=== PATIENT | male | born 1985 | race Caucasian/White ===

== ENCOUNTER 2020-06-30 17:43 | Inpatient (IN) | payer OTHER ==
[~2020-06-30] VITALS: Ht 170.2 cm; Wt 90.2 kg
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
[2020-06-30] MEDS ORDERED: SODIUM CHLORIDE 0.9% 1,000ML IVBOLUS ONE ×3 (18:00→20:30)
[2020-06-30] MEDS ORDERED: ACETAMINOPHEN 500 MG TABLET PO ONE (18:00)
[2020-06-30] MEDS ORDERED: SODIUM CHLORIDE FLUSH 10ML SYR IVF ONE (18:00)
[2020-06-30] MEDS ORDERED: ACETAMINOPHEN 500 MG TABLET ONE (18:10)
--- NOTE | 2020-06-30 18:27 | NUR ---
BLOOD CULTURES DRAWN. IV STARTED.
[2020-06-30 18:38] LABS: BASOPHILS % (AUTO) 0 % (0-1); EOSINOPHILS % (AUTO) 1 % (1-7); LYMPHOCYTES % (AUTO) 8 % (22-44); MD NO; MEAN CORPUSCULAR HEMOGLOBIN 30.1 pg (27.5-34.5); MEAN CORPUSCULAR HGB CONC 34.3 g/dL (33.2-36.2); MEAN PLATELET VOLUME 7.3 fL (7.4-10.4); MONOCYTES % (AUTO) 2 % (2-9); NEUTROPHILS % (AUTO) 90 % (42-75); PLATELET COUNT 244 x10^3/uL (130-400); RED BLOOD COUNT 4.92 x10^6/uL (4.38-5.82); RED CELL DISTRIBUTION WIDTH 13.1 % (9.4-14.8)
[2020-06-30] MEDS ORDERED: NEOSPORIN OINT. PKT 1 PACKET ONE (18:44)
--- NOTE | 2020-06-30 18:46 | NUR ---
BEDSIDE REPORT RECEIVED FROM ALDO RIGGINS
[2020-06-30 18:51] LABS: ALANINE AMINOTRANSFERASE 33 U/L (12-78); ALBUMIN 3.5 g/dL (3.4-5.0); ANION GAP 7 mmol/L (5-15); CALCIUM 8.9 mg/dL (8.5-10.1); CHLORIDE 109 mmol/L (98-107); CREATININE 0.94 mg/dL (0.7-1.3)
[2020-06-30 18:53] LABS: ALKALINE PHOSPHATASE 118 U/L (45-117); BILIRUBIN,TOTAL 2.8 mg/dL (0.2-1.0); TOTAL PROTEIN 6.8 g/dL (6.4-8.2)
--- NOTE | 2020-06-30 19:08 | NUR ---
UPON ENTRY INTO ROOM PT O2 NOTED TO BE 89% ON ROOM AIR, PT PLACED ON 2L SUPPLEMENTAL O2 VIA NASAL CANNULA. PT O2 NOW 96%. PT TOLERATING WELL. ERP AT BEDSIDE.
--- NOTE | 2020-06-30 19:15 | NUR ---
PER ERP, , WILL ADMIN NARCAN PER EMAR AND REEVALUATE PT STATUS, MENTATION AND VITALS. FOLLOWING ADMIN OF 0.4MG PT HAS SLIGHT INCREASE IN ACTIVITY AND RESPONSE TO STAFF. VITALS IMPROVING. PT SLEEPING CALMLY ON GURNEY. ERP NOTIFIED.
[2020-06-30] MEDS ORDERED: NALOXONE 0.4 MG/ML, 1ML ONE ×2 (19:18→19:35)
[2020-06-30] MEDS ORDERED: NALOXONE 0.4 MG/ML, 1ML IVPush ONE ×2 (19:30→20:00)
--- NOTE | 2020-06-30 19:40 | NUR ---
PT GIVEN SECOND DOSE OF NARCAN IV, SEE EMAR. VITALS REMAIN STABLE AND MENTATION IMPROVED SLIGHTLY, ABLE TO OPEN EYES FOR BRIEF PERIODS OF TIME. NOT ABLE TO FOLLOW COMMANDS AT THIS TIME. ERP NOTIFIED.
[2020-06-30] MEDS ORDERED: DOXYCYCLINE 100 MG in DEXTROSE 5% 250 ML IV SCH (20:00)
[2020-06-30] MEDS ORDERED: CEFTRIAXONE PMX 1GM/50ML 50 ML IV ONE (20:00)
[2020-06-30] MEDS ORDERED: NALOXONE 1 MG/ML, 2ML ONE ×2 (20:08→21:24)
[2020-06-30] MEDS ORDERED: NALOXONE 4 MG in SODIUM CHLORIDE 0.9% 246 ML IV PRN (20:30)
[2020-06-30] MEDS ORDERED: NALOXONE 1 MG/ML, 2ML IVPush ONE ×2 (20:30→21:30)
[2020-06-30] MEDS ORDERED: CEFTRIAXONE PMX 1GM/50ML 50 ML ONE (20:36)
[2020-06-30] MEDS ORDERED: METRONIDAZOLE PMX 500MG/100ML 100 ML IV SCH (21:00)
[2020-06-30] MEDS ORDERED: DOCUSATE 100 MG CAPSULE PO PRN (21:00)
[2020-06-30] MEDS ORDERED: GUAIFENESIN/DM 200-20MG, 10ML UDC PO PRN (21:00)
[2020-06-30] MEDS ORDERED: ONDANSETRON 2MG/ML, 2ML IVPush PRN (21:00)
--- NOTE | 2020-06-30 21:00 | NUR ---
PT REMAINS CALM SITTING UPRIGHT ON BED, EYES CLOSED. PT ABLE TO FOLLOW SIMPLE COMMANDS. A&OX2-3.
--- NOTE | 2020-06-30 21:14 | NUR ---
NARCAN INFUSION STARTED PER PROTOCOL, 2MG/HR. WILL BOLUS IVP PER IF NEEDED. PT REMAINS CALM, VSS. PT ABLE TO OPEN EYES AND SPEAK 2-3 WORDS AT A TIME, FOLLOWING COMMANDS APPROPRIATELY. WILL CONTINUE TO MONITOR.
--- NOTE | 2020-06-30 21:20 | NUR ---
RESPIRATORY THERAPY AT BEDSIDE
[2020-06-30] MEDS ORDERED: HEPARIN 5,000 UNITS/ML, 1ML ONE (21:24)
[2020-06-30] MEDS ORDERED: METRONIDAZOLE PMX 500MG/100ML 100 ML ONE (21:24)
[2020-06-30] MEDS: HEPARIN 5,000 UNITS/ML, 1ML SQ SCH (21:28)
--- NOTE | 2020-06-30 21:55 | NUR ---
PT MOVED FROM ED ROOM 26 TO ED 18
[2020-06-30] MEDS: AZITHROMYCIN 500 MG in SODIUM CHLORIDE 0.9% 250 ML IV SCH (22:25)
--- NOTE | 2020-06-30 23:08 | NUR ---
PT SITTING UPRIGHT ON GURMAYRA, BESSIE, VSS. PT CONVERSING WITH THIS RN, PT STATES "I THINK I GOT SOME CRAZY DRUGS YESTRDAY, IT WAS SCARING ME HOW MUCH MY MENTAL STATE WAS DECLINING, I JUST KNEW SOMETHING WAS WRONG". PT TALKING IN FULL SENTENCES WITH THIS RN, A&OX4 AT THIS TIME. NARCAN DRIP INFUSING AT 3MG/HR.
[2020-06-30] MEDS: NALOXONE 4 MG in SODIUM CHLORIDE 0.9% 246 ML IV PRN (23:11)
--- NOTE | 2020-06-30 23:37 | NUR ---
HOSPITAL BED REQUESTED.
--- NOTE | 2020-07-01 00:03 | NUR ---
PT SITTING UPRIGHT ON SHA, BESSIE, VSS. PT CONTINUES CONVERSING WITH THIS RN. PT TALKING IN FULL SENTENCES WITH THIS RN, A&OX4 AT THIS TIME. NARCAN DRIP INFUSING AT 3MG/HR.
[2020-07-01] MEDS: NALOXONE 4 MG in SODIUM CHLORIDE 0.9% 246 ML IV PRN ×5 (00:45→06:26)
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
--- NOTE | 2020-07-01 01:50 | NUR ---
PT URINATED APPROX 1000 ML URINE
[2020-07-01 02:23] LABS: MICROSCOPIC INDICATED
--- NOTE | 2020-07-01 02:24 | NUR ---
NEW BAG OF NARCAN IVF STARTED PER EMAR. DOSE TITRATED TO 2.75MG/HR. PT TOLERATING WELL. VSS, NAD.
[2020-07-01 02:28] LABS: AMPHETAMINE SCREEN, URINE Positive (Negative); BARBITURATE SCREEN, URINE Negative (Negative); BENZODIAZEPINE SCREEN, URINE Negative (Negative); CANNABINOID SCREEN, URINE Positive (Negative); COCAINE SCREEN, URINE Negative (Negative); METHADONE SCREEN, URINE Negative (Negative); OPIATE SCREEN, URINE Positive (Negative)
--- NOTE | 2020-07-01 03:02 | NUR ---
PT SITTING ON HOSPITAL BED, RESTING WITH EYES CLOSED. NAD, VSS. PT NARCAN TITRATED 2.5MG/HR. PT TOLERATING WELL. RESPIRATIONS UNLABORED AND REGULAR. NO NEEDS AT THIS TIME. CALL LIGHT WITHIN REACH.
--- NOTE | 2020-07-01 04:03 | NUR ---
PT SITTING ON HOSPITAL BED, RESTING WITH EYES CLOSED AND TV ON. NAD, VSS. PT NARCAN TITRATED DOWN TO 2 MG/HR. PT TOLERATING WELL. RESPIRATIONS UNLABORED AND REGULAR. NO NEEDS AT THIS TIME. CALL LIGHT WITHIN REACH.
--- NOTE | 2020-07-01 04:57 | NUR ---
PT SITTING ON HOSPITAL BED, RESTING WITH EYES CLOSED AND TV ON. NAD, VSS. PT NARCAN TITRATED DOWN TO 1.75 MG/HR. PT TOLERATING WELL. RESPIRATIONS UNLABORED AND REGULAR. NO NEEDS AT THIS TIME. CALL LIGHT WITHIN REACH.
[2020-07-01] MEDS ORDERED: HEPARIN 5,000 UNITS/ML, 1ML ONE (05:24)
[2020-07-01] MEDS: HEPARIN 5,000 UNITS/ML, 1ML SQ SCH ×3 (05:25→20:30)
[2020-07-01 05:29] LABS: BASOPHILS % (AUTO) 1 % (0-1); EOSINOPHILS % (AUTO) 1 % (1-7); LYMPHOCYTES % (AUTO) 12 % (22-44); MEAN CORPUSCULAR HEMOGLOBIN 30.4 pg (27.5-34.5); MEAN CORPUSCULAR HGB CONC 34.4 g/dL (33.2-36.2); MEAN PLATELET VOLUME 7.6 fL (7.4-10.4); MONOCYTES % (AUTO) 9 % (2-9); NEUTROPHILS % (AUTO) 78 % (42-75); PLATELET COUNT 195 x10^3/uL (130-400); RED CELL DISTRIBUTION WIDTH 13.6 % (9.4-14.8)
[2020-07-01 05:35] LABS: MD NO
[2020-07-01 05:41] LABS: ALBUMIN 2.6 g/dL (3.4-5.0); ANION GAP 3 mmol/L (5-15); CALCIUM 7.7 mg/dL (8.5-10.1); CHLORIDE 111 mmol/L (98-107)
--- NOTE | 2020-07-01 05:41 | NUR ---
Pt to be admitted to ICU, room 8. Report called to JUAN.
[2020-07-01 05:45] LABS: ALANINE AMINOTRANSFERASE 107 U/L (12-78); ALKALINE PHOSPHATASE 156 U/L (45-117); CREATININE 0.85 mg/dL (0.7-1.3); TOTAL PROTEIN 5.4 g/dL (6.4-8.2)
[2020-07-01 06:07] VITALS: BP 99/55
[2020-07-01 06:12] VITALS: BP 99/54
[2020-07-01 07:19] LABS: C-REACTIVE PROTEIN, QUANT 5.1 mg/dL (0.02-0.49)
[2020-07-01] MEDS: NICOTINE 21 MG/24 HR PATCH.TD24 TD SCH (12:30)
[2020-07-01 14:00] VITALS: BP 104/45
[2020-07-01] MEDS: CEFTRIAXONE PMX 1GM/50ML 50 ML IV SCH (20:29)
[2020-07-01 20:30] VITALS: BP 118/68
[2020-07-01] MEDS: AZITHROMYCIN 500 MG in SODIUM CHLORIDE 0.9% 250 ML IV SCH (22:47)
[2020-07-02 02:10] VITALS: BP 112/70
[2020-07-02] MEDS: HEPARIN 5,000 UNITS/ML, 1ML SQ SCH ×3 (04:39→23:35)
[2020-07-02] MEDS ORDERED: HYDROcodone/APAP 5/325 TABLET PO ONE (05:00)
[2020-07-02 05:23] LABS: CALCIUM 8.3 mg/dL (8.5-10.1); CHLORIDE 112 mmol/L (98-107)
[2020-07-02 05:29] LABS: ALANINE AMINOTRANSFERASE 84 U/L (12-78); ALBUMIN 2.7 g/dL (3.4-5.0); ALKALINE PHOSPHATASE 130 U/L (45-117); ANION GAP 4 mmol/L (5-15); CREATININE 0.74 mg/dL (0.7-1.3); TOTAL PROTEIN 5.7 g/dL (6.4-8.2)
[2020-07-02 07:10] VITALS: BP 133/81
[2020-07-02] MEDS: NICOTINE 21 MG/24 HR PATCH.TD24 TD SCH (08:42)
[2020-07-02] MEDS ORDERED: HALOPERIDOL 1 MG TABLET ONE (16:03)
[2020-07-02] MEDS ORDERED: SERTRALINE 50MG TABLET ONE (16:03)
[2020-07-02] MEDS: SERTRALINE 50MG TABLET PO SCH (16:07)
[2020-07-02] MEDS: HALOPERIDOL 2 MG TABLET PO SCH ×2 (16:07→23:34)
[2020-07-02 19:12] VITALS: BP 126/72
[2020-07-02] MEDS: CEFTRIAXONE PMX 1GM/50ML 50 ML IV SCH (19:50)
[2020-07-02] MEDS: AZITHROMYCIN 500 MG in SODIUM CHLORIDE 0.9% 250 ML IV SCH (23:34)
[2020-07-03 05:53] LABS: ALANINE AMINOTRANSFERASE 67 U/L (12-78); ALBUMIN 2.8 g/dL (3.4-5.0); ANION GAP 2 mmol/L (5-15); CALCIUM 8.8 mg/dL (8.5-10.1); CHLORIDE 113 mmol/L (98-107); CREATININE 0.68 mg/dL (0.7-1.3)
[2020-07-03 05:55] LABS: ALKALINE PHOSPHATASE 123 U/L (45-117); BILIRUBIN,TOTAL 0.6 mg/dL (0.2-1.0); TOTAL PROTEIN 6.2 g/dL (6.4-8.2)
[2020-07-03] MEDS: HEPARIN 5,000 UNITS/ML, 1ML SQ SCH ×3 (08:00→16:00)
[2020-07-03] MEDS: HALOPERIDOL 2 MG TABLET PO SCH (08:38)
[2020-07-03] MEDS: SERTRALINE 50MG TABLET PO SCH (08:38)
[2020-07-03] MEDS: NICOTINE 21 MG/24 HR PATCH.TD24 TD SCH (08:38)
[2020-07-03 08:44] VITALS: BP 127/77
[2020-07-03] MEDS ORDERED: CEFDINIR 300 MG CAPSULE PO SCH (09:00)
[2020-07-03] MEDS ORDERED: AZITHROMYCIN 250 MG TABLET PO SCH (09:00)
[2020-07-03] MEDS ORDERED: METHOCARBAMOL 500 MG TABLET PO PRN (13:00)
[2020-07-03] MEDS ORDERED: CEFD300C37 PO (14:48)
[2020-07-03] MEDS ORDERED: AZIT250T89 PO (14:48)
[2020-07-03] MEDS ORDERED: SERT50TA28 PO (14:48)
[2020-07-03] MEDS ORDERED: HALO2TAB PO (14:48)
[2020-07-03 15:16] VITALS: BP 124/72
== END 2020-07-03 17:20 | DRG 917 ==
LOC: ED 20:30 → EDIP 20:37 → ED 21:10 → ICU 07-01 05:56 → 3N 07-01 19:45
PROVIDERS: ADMIT Family Medicine; ATTEND Family Medicine
DX: T40.1X2A Poisoning by heroin, intentional self-harm, initial encounter (principal); J18.9 Pneumonia, unspecified organism; J96.90 Respiratory failure, unspecified, unspecified whether with hypoxia or hypercapnia; F15.20 Other stimulant dependence, uncomplicated; T40.2X2A Poisoning by other opioids, intentional self-harm, initial encounter; B19.20 Unspecified viral hepatitis C without hepatic coma; Z20.822 Contact with and (suspected) exposure to COVID-19; I95.9 Hypotension, unspecified; F32.9 Major depressive disorder, single episode, unspecified; F41.9 Anxiety disorder, unspecified; Z59.0 Homelessness; Z72.0 Tobacco use; Z91.5 Personal history of self-harm; Y92.89 Other specified places as the place of occurrence of the external cause
CPT/HCPCS: 36415; 71045; 80053; 80074; 80307; 81001; 83605; 83615; 84145; 85025; 85379; 86140; 87040; 87081; 87086; 87521; 93005; 96361; 96374; 96375; 96376; 99291; G0378; J0456; J0696; J1644; J2310; J7060; J7030; J7050; U0003

== ENCOUNTER 2020-07-08 18:03 | Emergency (ER) | payer OTHER ==
[~2020-07-08] VITALS: Ht 172.7 cm; Wt 90.0 kg
[~2020-07-08 18:03] MED LIST: AZIT250T89 PO; CEFD300C37 PO; HALO2TAB PO; SERT50TA28 PO
--- NOTE | 2020-07-08 18:21 | NUR ---
kole HAYES from [facility]. "a few hours ago" pt started feeling the muscles in the L side of his face tighten up. "it felt like my face was just trying to go down to my shoulder." recently stopped herion and meth and was started on sertraline, trazodone, and haloperidol. en route ems gave pt versed and benadryl. pt state its made the muscle tightness feel better.
--- NOTE | 2020-07-08 19:20 | NUR ---
Bedside report rec'd from Sandee. Patient awakes after several attempts saying his name and shaking patient, then falls right back to sleep. Patient resp easy and unlabored. VSS. O2- 97 on RA. Will con't to monitor
[2020-07-08 19:40] VITALS: BP 126/66
--- NOTE | 2020-07-08 19:41 | NUR ---
Patient awake and stated he was ready to go home. Patient ride was called and is on his way.
== END 2020-07-08 19:50 | disposition home or self-care (01) ==
LOC: ED 18:48
DX: G24.09 Other drug induced dystonia (principal); T43.4X5A Adverse effect of butyrophenone and thiothixene neuroleptics, initial encounter; F17.200 Nicotine dependence, unspecified, uncomplicated; Z90.89 Acquired absence of other organs; Z90.49 Acquired absence of other specified parts of digestive tract; Y92.89 Other specified places as the place of occurrence of the external cause
CPT/HCPCS: 99283

== ENCOUNTER 2021-02-22 22:55 | Emergency (ER) | payer OTHER ==
[~2021-02-22] VITALS: Ht 172.7 cm; Wt 85.4 kg
--- NOTE | 2021-02-22 23:08 | NUR ---
NIL X 1
--- NOTE | 2021-02-22 23:42 | NUR ---
PT FOUND SLEEPING IN LOBBY, PT REFUSED TO PUT A MASK ON AND GOT CONFRONTATIONAL WITH THIS RN AND OTHER PATIENTS IN [facility], SECURITY CALLED, PT ARGUED WITH SECURITY BUT PUT ON HIS MASK
[2021-02-23] MEDS ORDERED: LIDOCAINE-MPF 1%, 5ML ONE (02:59)
[2021-02-23] MEDS ORDERED: LIDOCAINE-MPF 1%, 5ML INFIL ONE (03:00)
--- NOTE | 2021-02-23 04:21 | NUR ---
LIP LACERATION IRRIGATED UNDER PRESSURE WITH 750ML NS. PT TOLERATED WELL. NO ADDITIONAL NEEDS AT THIS TIME.
[2021-02-23] MEDS ORDERED: BACITRACIN ZINC OINT 500U/GM, 0.9 GM ONE (04:36)
[2021-02-23 04:43] VITALS: BP 112/67
--- NOTE | 2021-02-23 04:43 | NUR ---
Patient given discharge instructions and they have confirmed that they understand the instructions. Patient ambulatory with steady gait. NAD, all questions answered appropriately, denies additional needs at this time. No personal belongings left in room after discharge.
== END 2021-02-23 04:45 | disposition home or self-care (01) ==
LOC: ED 02-23 03:08
DX: S01.511A Laceration without foreign body of lip, initial encounter (principal); F17.200 Nicotine dependence, unspecified, uncomplicated; Z90.49 Acquired absence of other specified parts of digestive tract; Y04.8XXA Assault by other bodily force, initial encounter; Y93.89 Activity, other specified; Y92.89 Other specified places as the place of occurrence of the external cause; Y99.8 Other external cause status
CPT/HCPCS: 12013; 70450; 70486; 99285